=== PATIENT | female | born 1990 | race Two or more races ===

== ENCOUNTER 2018-10-19 11:38 | Outpatient (CLI) | payer MEDICAID ==
--- NOTE | 2018-10-19 13:03 | Non Stress Test Report ---
Non Stress Test Datetime Report Generated by CPN: 10/19/2018 13:03 DEMOGRAPHIC Test Number: 1 EGA NST: 37.3 INDICATION Indication for Study: Polyhydramnios VITAL SIGNS Temperature - NST: 98.1 RESP - NST: 16 MONITORING Monitor Explained: Monitor Explained; Test Explained; Patient Verbalized Understanding Time on Monitor: 10/19/2018 12:00 Time off Monitor: 10/19/2018 12:54 NST Duration: 54 NST INTERVENTIONS NST Interventions: PO Hydration Physician Notified NST: DR JOSEF BABY A: [id number] BABY A Movement : Present Contraction Frequency : 0 FHR Baseline : 125 Accelerations : 15X15 Decelerations : None Variability : Moderate 6-25bpm NST Review: Meets Criteria for Reactive NST NST Review and Verified By : CALLY CAROLINA RN NST Results: Reactive NST REPORT Report Trigger: Send Report
== END 2018-10-19 13:07 | disposition home or self-care (01) ==
LOC: LC 11:38
PROVIDERS: ATTEND Obstetrics & Gynecology
PROC: 4A1HXCZ Monitoring of Products of Conception, Cardiac Rate, External Approach (ICD-10-PCS; principal; 2018-10-19)
DX: O40.3XX0 Polyhydramnios, third trimester, not applicable or unspecified (principal); Z3A.37 37 weeks gestation of pregnancy
CPT/HCPCS: 59025

== ENCOUNTER 2018-10-30 04:57 | Inpatient (IN) | payer MEDICAID ==
[2018-10-28 10:14] LABS: ABSOLUTE EOSINOPHILS # (AUTO) 0.1 10^3/uL (0.0-0.6); ABSOLUTE LYMPHOCYTES (AUTO) 1.5 10^3/uL (0.5-4.7); ABSOLUTE MONOCYTES (AUTO) 0.4 10^3/uL (0.1-1.4); ABSOLUTE NEUT (AUTO) 5.5 10^3/uL (1.7-8.2); BASOPHILS % (AUTO) 0.2 % (0-2); EOSINOPHILS % (AUTO) 1.8 % (0-6); HEMATOCRIT 34.7 % (36.0-47.0); HEMOGLOBIN 11.9 g/dL (12.0-15.5); LYMPHOCYTES % (AUTO) 20.3 % (13-45); MEAN CORPUSCULAR HGB CONC 34.3 g/dL (32.0-36.0); MEAN CORPUSCULAR VOLUME 85 fl (80-97); MONOCYTES % (AUTO) 4.9 % (3-13); PLATELET COUNT 260 10^3/uL (150-450); RED CELL DISTRIBUTION WIDTH 14.8 % (11.5-14.0); SEGMENTED NEUTROPHILS % (AUTO) 72.8 % (42-78); TOTAL CELLS COUNTED % (AUTO) 100 %; WHITE BLOOD COUNT 7.6 10^3/uL (4.0-10.5)
[2018-10-28 10:30] LABS: APPEARANCE,URINE SLIGHTLY-CLOUDY; BILIRUBIN,URINE NEGATIVE (NEGATIVE); COLOR,URINE YELLOW; GLUCOSE, URINE NEGATIVE (NEGATIVE); KETONES,URINE NEGATIVE (NEGATIVE); LEUKOCYTE ESTERASE,URINE MODERATE (NEGATIVE); NITRITE,URINE NEGATIVE (NEGATIVE); PROTEIN,URINE NEGATIVE (NEGATIVE); URINE SPECIFIC GRAVITY 1.013; UROBILINOGEN,URINE NEGATIVE mg/dL (<2.0)
[2018-10-28 10:41] LABS: URINE AMPHETAMINES SCREEN NEGATIVE; URINE BARBITURATES SCREEN NEGATIVE; URINE BENZODIAZEPINES SCREEN NEGATIVE; URINE COCAINE SCREEN NEGATIVE; URINE MARIJUANA (THC) SCREEN NEGATIVE; URINE METHADONE SCREEN NEGATIVE; URINE PHENCYCLIDINE SCREEN NEGATIVE
[2018-10-30] MEDS ORDERED: CEFAZOLIN 1 GM/D5W RTU 1 GM/50 ML RTUPB IV ONE (05:08)
[2018-10-30] MEDS ORDERED: LIDOCAINE 0.5% INJ-PF (5 MG/ML) 50 ML SDV SUBCUT PRN (07:11)
[2018-10-30] MEDS ORDERED: RINGERS SOLUTION,LACTATED 1,000 ML IV PRN (07:11)
[2018-10-30] MEDS ORDERED: FENTANYL CITRATE INJ/PF 100 MCG/2 ML AMPUL ONE ×2 (07:21→09:57)
[2018-10-30] MEDS ORDERED: OXYTOCIN 10 UNIT/ML VIAL ONE (07:21)
[2018-10-30] MEDS ORDERED: MIDAZOLAM 2 MG/2 ML INJ ONE (07:21)
[2018-10-30] MEDS ORDERED: MORPHINE SULFATE 10 MG/ML INJ ONE (07:22)
[2018-10-30] MEDS ORDERED: ONDANSETRON HCL INJ/PF 4 MG/2 ML SDV ONE (07:22)
[2018-10-30] MEDS ORDERED: EPHEDRINE SULFATE INJ 50 MG/1 ML AMPULE ONE (07:22)
[2018-10-30] MEDS ORDERED: BUPIVACAINE HCL/DEX-WATER/PF 15 MG/2 ML AMPULE ONE (07:23)
[2018-10-30] MEDS ORDERED: FENTANYL CITRATE INJ/PF 100 MCG/2 ML AMPUL IV PRN ×3 (07:45)
[2018-10-30] MEDS ORDERED: PROMETHAZINE HCL INJ 25 MG/1 ML VIAL IV PRN ×3 (07:45→08:35)
[2018-10-30] MEDS ORDERED: MEPERIDINE HCL/PF INJ 25 MG/1 ML DISP.SYRIN IV PRN (07:45)
[2018-10-30] MEDS ORDERED: DIPHENHYDRAMINE HCL 50 MG/ML VIAL IV PRN (07:45)
[2018-10-30] MEDS ORDERED: OXYCODONE-ACETAMINOPHEN 5-325 MG TABLET PO PRN ×3 (07:45→08:35)
[2018-10-30] MEDS ORDERED: OXYTOCIN/NORMAL SALINE 20 UNIT/1,000 ML RTUINJ IV PRN (08:35)
[2018-10-30] MEDS ORDERED: ACETAMINOPHEN 325 MG TABLET PO PRN (08:35)
[2018-10-30] MEDS ORDERED: MEASLES,MUMPS&RUBELLA VACC/PF 0.5 ML VIAL SUBCUT PRN (08:35)
[2018-10-30] MEDS ORDERED: SIMETHICONE 80 MG TAB.CHEW PO PRN (08:35)
[2018-10-30] MEDS ORDERED: DIPH/PERTUSS(ACELL)/TETANUS VAC/PF 0.5 ML SYR (>=10YO) IM PRN (08:35)
--- NOTE | 2018-10-30 08:40 | PDOC DELIVERY SUMMARY ---
Delivery Summary - Maternal Hx : III Hx # Term Pregnancies: 1 Hx # Pregnancies: 1 DELICIA: 11/06/18 Gestational Age: 39 weeks Ruptured Membranes: AROM Fluids: Clear - Delivery Presentation: Vertex Uterine Contraction Monitoring: External : Scheduled Placenta: Within Normal Limits Nuchal Cord: No - Medications Type of Anesthesia:: Spinal - apgars 9/9 7# 14oz
[2018-10-30] MEDS ORDERED: OXYTOCIN/NORMAL SALINE 20 UNIT/1,000 ML RTUINJ ONE (08:59)
[2018-10-30] MEDS ORDERED: HYDROMORPHONE HCL INJ/PF 2 MG/ML AMPULE ONE (11:26)
[2018-10-30] MEDS: PRENATAL VITAMIN W DHA CAPSULE PO SCH (11:28)
[2018-10-30] MEDS: DOCUSATE SODIUM 100 MG CAPSULE PO SCH ×2 (11:28→18:09)
[2018-10-30] MEDS ORDERED: HYDROMORPHONE HCL INJ/PF 2 MG/ML AMPULE IV PRN (11:29)
--- NOTE | 2018-10-30 13:17 | OPERATIVE REPORT E ---
Operative Report NAME: CONNER PORTILLO : 1990 AGE: 28Y DATE OF SURGERY: 10/30/2018 ROOM: 222 PREOPERATIVE DIAGNOSIS: IUP at term with prior . POSTOPERATIVE DIAGNOSIS: IUP at term with prior . OPERATION: Repeat low-transverse with delivery of a viable female, 7 pounds 14 ounces, Apgars of 9 and 9. SURGEON: Jasmin MERINO M.D. ANESTHESIA: Spinal. ESTIMATED BLOOD LOSS: 600 mL. TISSUE REMOVED: Placenta. PROCEDURE: The patient was placed in a supine position, rolled on her right side, prepped and draped in usual sterile fashion. A Pfannenstiel incision was made through an existing Pfannenstiel eschar. The incision extended through the subcutaneous tissue and fascia with sharp dissection. Fascia was sharply divided. Rectus muscles were bluntly and sharply divided. Parietal peritoneum was entered with sharp dissection. Uterus was nicked in the midline and extended bilaterally. then delivered through the uterine incision, nose and mouth suctioned with the bulb syringe, cord was clamped, and the was passed from the table. The placenta was manually extracted and the uterus then closed in 2 layers, first a running stitch of 0 Vicryl and the second a Lembert stitch imbricating the first layer with 0 Vicryl. A small amount of bleeding was noted in the mid portion, controlled with [id number] suture of 0 Vicryl. The fascia was closed with 0 Vicryl and the skin closed with subcu absorbable nereida. The patient's urine remained clear throughout the procedure. She was taken to the recovery room in good condition, infant to nursery in good condition. DICTATING PHYSICIAN: Jasmin MERINO M.D. [id number] PHY#: [id number] ID: [id number] JOB#: [id number] ACCT: [id number] cc:Jasmin MERINO M.D. >
[2018-10-30] MEDS: KETOROLAC TROMETHAMINE INJ/PF 30 MG/1 ML SDV IV SCH ×2 (14:08→21:13)
[2018-10-31] MEDS: KETOROLAC TROMETHAMINE INJ/PF 30 MG/1 ML SDV IV SCH ×3 (06:21→23:43)
[2018-10-31 06:44] LABS: HEMOGLOBIN 11.7 g/dL (12.0-15.5); MEAN CORPUSCULAR HEMOGLOBIN 28.9 pg (27.0-33.4); MEAN CORPUSCULAR HGB CONC 34.5 g/dL (32.0-36.0); MEAN CORPUSCULAR VOLUME 84 fl (80-97); PLATELET COUNT 229 10^3/uL (150-450); RED BLOOD COUNT 4.06 10^6/uL (3.72-5.28); RED CELL DISTRIBUTION WIDTH 14.7 % (11.5-14.0); WHITE BLOOD COUNT 8.6 10^3/uL (4.0-10.5)
--- NOTE | 2018-10-31 10:15 | PDOC PROGRESS REPORT ---
Subjective-OB Progress Note for:: 10/31/18 - POD #1, s/p Rpt , doing well, no complaints, O+, Rubella Immune, bottlefeeding Physical Exam (OB) Vital Signs: Temp Pulse Resp BP Pulse Ox 98.6 F 90 18 111/61 98 10/31/18 07:37 10/31/18 07:37 10/31/18 07:37 10/31/18 07:37 10/31/18 07:37 Intake & Output 10/30/18 10/31/18 11/01/18 06:59 06:59 06:59 Intake Total 1800 Output Total 1650 Balance 150 Weight 118.39 kg - General General Appearance: Appears well, Alert In distress: None - PIH/Pre-Eclampsia DTR's: 1 + Clonus: Negative Headache: Absent Epigastric Pain: No Visual Changes: No - Dressing Removed: - opsite Incision: Dressing Closure Type: pressure d - Lochia Lochia Amount: Small 10-25 ml Lochia Color: Rubra/Red - Abdomen Description: Tender, Soft, Round Hernia Present: No Fundal Description: Firm, Midline Fundal Height: u/u - u/2 - HEENT Eyes: Normal - Respiratory Respiratory Status: No respiratory distress Chest Status: Nontender Breath sounds: Clear - Cardiovascular Rhythm: Regular Heart Sounds: Normal auscultation - Abdominal Inspection: Normal Distension: No distension Tenderness: Nontender Abdominal Notes: +bowel sounds - Genitourinary Genitourinary Note: voiding - Extremities Upper extremity: Normal inspection Lower extremities: Other - 1+ edema - Neurological Cognition: Normal Orientation: AAOx4 - Psychological Associated symptoms: Normal affect, Normal mood - Skin Skin Temperature: Warm Skin Moisture: Dry Objective-Diagnostic Laboratory: 10/31/18 06:37 10/31/18 06:37 WBC 8.6 RBC 4.06 Hgb 11.7 L Hct 34.0 L MCV 84 MCH 28.9 MCHC 34.5 RDW 14.7 H Plt Count 229 Assessment and Plan(PN) - Assessment and Plan (1) S/P repeat low transverse Is this a current diagnosis for this admission?: Yes (2) Normal course Is this a current diagnosis for this admission?: Yes - Time Spent with Patient Time with patient: Less than 15 minutes Medications reviewed and adjusted accordingly: Yes - Disposition Anticipated Discharge: Home Within: within 48 hours
[2018-10-31] MEDS: DOCUSATE SODIUM 100 MG CAPSULE PO SCH ×2 (10:20→18:06)
[2018-10-31] MEDS: PRENATAL VITAMIN W DHA CAPSULE PO SCH (10:20)
[2018-10-31] MEDS: IBUPROFEN 800 MG TABLET PO SCH ×3 (11:19→23:45)
[2018-10-31] MEDS: OXYCODONE-ACETAMINOPHEN 5-325 MG TABLET PO PRN (21:18)
[2018-11-01] MEDS: IBUPROFEN 800 MG TABLET PO SCH ×2 (05:46→11:24)
[2018-11-01] MEDS: OXYCODONE-ACETAMINOPHEN 5-325 MG TABLET PO PRN (05:48)
--- NOTE | 2018-11-01 10:05 | PDOC DISCHARGE SUMMARY ---
Final Diagnosis Discharge Date: 11/01/18 - POD #2, doing well, desires to go home today. Breast and bottlefeeding. O+, Rubella Immune s/p Rpt - Final Diagnosis (1) S/P repeat low transverse Is this a current diagnosis for this admission?: Yes (2) Normal course Is this a current diagnosis for this admission?: Yes Discharge Data - Discharge Medication Home Medications: Pnv No.95/Ferrous Fum/Folic AC [ Vitamin Tablet] 1 tab PO DAILY 10/19/18 Valacyclovir HCl [Valtrex] 1,000 mg PO DAILY 10/28/18 Reason(s) for Admission: Ceasarean Section-Repeat Procedures: NST, Ultrasound Intrapartum Procedure(s): : Low Cervical, Transverse - Diagnosis Test Laboratory: Temp Pulse Resp BP Pulse Ox 98.1 F 84 18 110/53 L 96 11/01/18 03:33 11/01/18 03:33 11/01/18 03:33 11/01/18 03:33 11/01/18 03:33 10/28/18 10/28/18 10/31/18 09:25 09:30 06:37 RBC 4.10 4.06 Hgb 11.9 L 11.7 L Hct 34.7 L 34.0 L Urine Opiates Screen NEGATIVE - Discharge information/Instructions Discharge Activity: Activity As Tolerated, No Driving, No Lifting Over 10 Pounds, Pelvic Rest Discharge Diet: As Tolerated, Regular Disposition: HOME, SELF-CARE Follow up with: [facility] in: 1, Weeks - for incision check
[2018-11-01] MEDS: DOCUSATE SODIUM 100 MG CAPSULE PO SCH (10:10)
[2018-11-01] MEDS: PRENATAL VITAMIN W DHA CAPSULE PO SCH (10:10)
[2018-11-01 10:22] VITALS: BP 120/64
== END 2018-11-01 12:34 | disposition home or self-care (01) | DRG 787 ==
LOC: 2S 04:57
PROVIDERS: ADMIT Obstetrics & Gynecology Gynecology; ATTEND Obstetrics & Gynecology Gynecology
PROC: 4A1HXCZ Monitoring of Products of Conception, Cardiac Rate, External Approach (ICD-10-PCS; 2018-10-30)
PROC: 10D00Z1 Extraction of Products of Conception, Low, Open Approach (ICD-10-PCS; principal; 2018-10-30 07:45)
DX: O34.211 Maternal care for low transverse scar from previous cesarean delivery (principal); O98.32 Other infections with a predominantly sexual mode of transmission complicating childbirth; O99.02 Anemia complicating childbirth; D57.3 Sickle-cell trait; Z87.891 Personal history of nicotine dependence; Z37.0 Single live birth; A60.04 Herpesviral vulvovaginitis; Z3A.39 39 weeks gestation of pregnancy
CPT/HCPCS: 1961; 36415; 59025; 80307; 81001; 85025; 85027; 86850; 86900; 86901; 90715; 94799; J1170; J1885; J2250; J2270; J2405; J2590; J3010; J3490; J7120